=== PATIENT | male | born 1985 | race Two or more races ===

== ENCOUNTER 2017-02-11 11:53 | Emergency (ER) | payer SELFPAY ==
[2017-02-11] MEDS ORDERED: DEXAMETHASONE SOD PHOS 10 MG/1 ML VIAL ONE (13:37)
[2017-02-11] MEDS ORDERED: AMOXICILLIN TRIHYDRATE 250 MG CAPSULE ONE (13:37)
[2017-02-11] MEDS ORDERED: IBUPROFEN 800 MG TABLET ONE (13:37)
== END 2017-02-11 14:36 | disposition home or self-care (01) ==
LOC: ED 11:53
DX: K02.9 Dental caries, unspecified (principal); K08.89 Other specified disorders of teeth and supporting structures; I25.2 Old myocardial infarction; F17.210 Nicotine dependence, cigarettes, uncomplicated
CPT/HCPCS: 99283 ×2; A9270 ×2; J1100